=== PATIENT | male | born 1945 | race Caucasian/White ===

== ENCOUNTER 2024-05-15 10:38 | Emergency (ER) | payer MEDICARE, OTHER ==
[~2024-05-15] VITALS: Ht 175.3 cm; Wt 64.0 kg
[~2024-05-15 10:38] MED LIST: EPINEPHRIN0.15 MG/0. INJ
[2024-05-15 10:47] VITALS: TEMP 98.5
[2024-05-15 11:27] VITALS: PULSE 82; RESP 18; O2SAT 96
[2024-05-15] MEDS: ALBUTEROL/IPRATROPIUM 3 ML NEB NEB ONE (11:28)
[2024-05-15 11:29] VITALS: PULSE 82; RESP 18
[2024-05-15] MEDS: HYDROCODONE BIT/ACETAMINOPHEN 2.5 MG/108MG PER 5 ML SOLUTION PO ONE (11:41)
[2024-05-15 11:45] LABS: INFLUENZAE A&B ANTIGEN (RAPID) NEGATIVE (NEGATIVE); RESPIRATORY SYNC. VIRUS NEGATIVE (NEGATIVE)
[2024-05-15] MEDS ORDERED: MEDROL2 MG PO (12:41)
[2024-05-15] MEDS ORDERED: BENZONATATE100 MG PO (12:41)
[2024-05-15] MEDS ORDERED: PAXLOVID 300-11 EAC1 PO (12:41)
[2024-05-15 13:39] VITALS: PULSE 79; RESP 18; O2SAT 93
== END 2024-05-15 14:59 | disposition home or self-care (01) ==
LOC: ER 11:00
DX: R05.9 Cough, unspecified (principal); U07.1 COVID-19; Z99.81 Dependence on supplemental oxygen; E78.5 Hyperlipidemia, unspecified; E03.9 Hypothyroidism, unspecified; G20.A1 Parkinson's disease without dyskinesia, without mention of fluctuations; G62.9 Polyneuropathy, unspecified
CPT/HCPCS: 71045; 87400; 87420; 94640; 94799; 99283; U0002